=== PATIENT | female | born 1975 | race Caucasian/White ===

== ENCOUNTER 2019-01-15 05:44 | Emergency (ER) | payer SELFPAY ==
[~2019-01-15] VITALS: Ht 157.5 cm; Wt 73.0 kg
[2019-01-15 05:52] VITALS: Ht 157.5 cm; Wt 73.0 kg
[2019-01-15 07:15] VITALS: BP 123/84
== END 2019-01-15 07:25 | disposition home or self-care (01) ==
LOC: ED 05:44
DX: S20.219A Contusion of unspecified front wall of thorax, initial encounter (principal); I10 Essential (primary) hypertension; E11.9 Type 2 diabetes mellitus without complications; V49.9XXA Car occupant (driver) (passenger) injured in unspecified traffic accident, initial encounter; Y93.89 Activity, other specified; Y92.89 Other specified places as the place of occurrence of the external cause; Y99.8 Other external cause status
CPT/HCPCS: Q0092

== ENCOUNTER 2020-01-26 08:52 | Inpatient (IN) | payer OTHER ==
[~2020-01-26] VITALS: Ht 154.9 cm; Wt 72.1 kg
[2020-01-26 09:08] VITALS: Ht 154.9 cm; Wt 72.1 kg
[2020-01-26 09:49] LABS: BASOPHIL % 0.9 % (0-2); PLATELET COUNT 348 x10^3mcL (130-400); RED CELL DISTRIBUTION WIDTH 12.4 % (11.5-14.5)
[2020-01-26 10:08] LABS: ALBUMIN 3.6 g/dL (3.4-5.0); ALKALINE PHOSPHATASE 107 U/L (46-116); ALT/SGPT 56 U/L (14-59); AST/SGOT 38 U/L (15-37); BILIRUBIN TOTAL 0.22 mg/dL (0.20-1.00); CARBON DIOXIDE 29.1 mmol/L (21-32); CHLORIDE SERUM 104 mmol/L (98-107); CHOLESTEROL 169 mg/dL (<200); CREATININE SERUM 0.5 mg/dL (0.6-1.0); GFR1 > 60 mL/min; GLUCOSE SERUM 180 mg/dL (74-106); LIPASE 122 IU/L (73-393); MAGNESIUM 1.7 mg/dL (1.8-2.4); POTASSIUM SERUM 3.9 mmol/L (3.5-5.1); SODIUM SERUM 142 mmol/L (136-145); T4(THYROXINE) 10.7 ug/dL (4.7-13.3)
[2020-01-26 10:18] LABS: HDL CHOLESTEROL 65 mg/dL (40-60); TOTAL PROTEIN, SERUM 8.3 g/dL (6.4-8.2)
[2020-01-26 10:28] LABS: microscopic required? NO
[2020-01-26 10:46] LABS: CALCIUM 9.6 mg/dL (8.5-10.1)
[2020-01-26 10:53] LABS: urine erythrocyte NEGATIVE (NEGATIVE)
[2020-01-26 12:05] LABS: AMPHETAMINE QUAL UR NONE DETECTED (See below)
[2020-01-26 12:36] LABS: PHOSPHOROUS 3.8 mg/dL (2.5-4.9)
[2020-01-26 12:43] LABS: CHOLESTEROL/HDL RATIO 2.6
[2020-01-26] MEDS ORDERED: ZESTRIL2.5 MG (12:45)
[2020-01-26] MEDS ORDERED: FORTAMET1000 MG PO (12:45)
[2020-01-26] MEDS ORDERED: GLIPIZIDE XL2.5 M1 (12:46)
[2020-01-26 13:29] VITALS: BP 106/60
[2020-01-26 17:32] VITALS: BP 114/69
[2020-01-26 22:03] VITALS: BP 104/60
[2020-01-27 05:05] VITALS: BP 117/63
[2020-01-27 07:23] LABS: BASOPHIL % 0.5 % (0-2); PLATELET COUNT 327 x10^3mcL (130-400); RED CELL DISTRIBUTION WIDTH 13.3 % (11.5-14.5)
[2020-01-27 07:41] LABS: CALCIUM 9.6 mg/dL (8.5-10.1); CARBON DIOXIDE 29.6 mmol/L (21-32); CHLORIDE SERUM 102 mmol/L (98-107); CREATININE SERUM 0.5 mg/dL (0.6-1.0); GFR1 > 60 mL/min; GLUCOSE SERUM 143 mg/dL (74-106); MAGNESIUM 1.8 mg/dL (1.8-2.4); POTASSIUM SERUM 3.6 mmol/L (3.5-5.1); SODIUM SERUM 141 mmol/L (136-145)
[2020-01-27 07:51] VITALS: BP 143/85
[2020-01-27 11:37] VITALS: BP 129/71
[2020-01-27 16:31] VITALS: BP 112/62
[2020-01-27 20:31] VITALS: BP 119/67
[2020-01-28 05:39] VITALS: BP 133/71
[2020-01-28 07:40] VITALS: BP 138/73
[2020-01-28] MEDS ORDERED: LIPI20 PO (10:13)
[2020-01-28] MEDS ORDERED: ASP325 PO (10:13)
[2020-01-28 10:26] VITALS: BP 138/73
== END 2020-01-28 11:17 | disposition home or self-care (01) | DRG 74 ==
LOC: ED 08:52 → DU 12:25 → MU 01-27 15:34
PROVIDERS: Emergency Medicine; ADMIT Internal Medicine
DX: G90.8 Other disorders of autonomic nervous system (principal); I10 Essential (primary) hypertension; E11.65 Type 2 diabetes mellitus with hyperglycemia; Z83.3 Family history of diabetes mellitus; Z82.3 Family history of stroke; I16.0 Hypertensive urgency; E83.42 Hypomagnesemia
CPT/HCPCS: 82962; 83880; 90658; 90732; G0378; J1815; J3490; Q0092